=== PATIENT | male | born 1995 | race African-American/Black ===

== ENCOUNTER 2022-02-13 15:52 | Emergency (ER) | payer OTHER ==
[~2022-02-13] VITALS: Ht 177.8 cm; Wt 72.7 kg
[~2022-02-13 15:52] MED LIST: NOCURR
[2022-02-13 16:17] VITALS: BP 147/89
[2022-02-13] MEDS ORDERED: ACETAMINOPHEN 500 MG TABLET PO ONE (17:00)
[2022-02-13] MEDS ORDERED: KETOROLAC TROMETHAMINE 30 MG/ML VIAL IM ONE (17:00)
[2022-02-13] MEDS ORDERED: PRED-554 PO (18:07)
== END 2022-02-13 18:20 | disposition home or self-care (01) ==
LOC: EMS 16:35
DX: M54.9 Dorsalgia, unspecified (principal); R21 Rash and other nonspecific skin eruption
CPT/HCPCS: 99283; 96372; J1885